=== PATIENT | female | born 1995 | race Caucasian/White ===

== ENCOUNTER 2021-06-07 12:49 | Emergency (ER) | payer SELFPAY ==
[2021-06-07] MEDS ORDERED: Ondansetron 4 MG Tab.DIS PO ONE (13:55)
--- NOTE | 2021-06-07 14:02 | EDM.PDOC ---
ED HPI GENERAL MEDICAL PROBLEM - General Chief Complaint: Gastrointestinal Problem Stated Complaint: VOMITTING AFTER COVID/ Time Seen by Provider: 06/07/21 13:46 Source of Information: Reports: Patient, RN Notes Reviewed History Limitations: Reports: No Limitations - History of Present Illness INITIAL COMMENTS - FREE TEXT/NARRATIVE: 25-year-old female presents emergency department today complaining, she is a 2 P01 currently at 13 weeks gestation, she has had difficulty sleeping food or liquids down over the last 24 hours has used herbal medications at home - Related Data Allergies Allergy/AdvReac Type Severity Reaction Status Date / Time Sulfa (Sulfonamide Allergy Hives Verified 06/07/21 13:45 Antibiotics) Home Meds: Home Meds Pnv No.95/Ferrous Fum/Folic AC [ Caplet] 1 each PO DAILY 06/07/21 [History] Past Medical History [facility] History: Reports: Social & Family History - Tobacco Use Tobacco Use Status *Q: Never Tobacco User - Caffeine Use Caffeine Use: Reports: Coffee ED ROS GENERAL - Review of Systems Review Of Systems: See Below Constitutional: Reports: No Symptoms HEENT: Reports: No Symptoms Respiratory: Reports: No Symptoms Cardiovascular: Reports: No Symptoms GI/Abdominal: Reports: Nausea, Vomiting ED EXAM, GI/ABD - Physical Exam Exam: See Below Exam Limited By: No Limitations General Appearance: Alert, WD/WN, No Apparent Distress Respiratory/Chest: No Respiratory Distress, Lungs Clear, Normal Breath Sounds, No Accessory Muscle Use, Chest Non-Tender Cardiovascular: No Murmur, Tachycardia Course - Vital Signs Last Recorded V/S: Last Vital Signs Temp 97.2 F 06/07/21 13:39 Pulse 114 H 06/07/21 13:39 Resp 16 06/07/21 13:39 BP 100/70 06/07/21 13:39 Pulse Ox 98 06/07/21 13:39 - Orders/Labs/Meds Meds: Medications Discontinued Medications Generic Name Dose Route Start Last Admin Trade Name Laura PRN Reason Stop Dose Admin Ondansetron HCl 4 mg 06/07/21 13:55 06/07/21 14:26 Ondansetron 4 Mg Tab.Dis PO 06/07/21 13:56 4 mg ONETIME ONE Administration Departure - Departure Time of Disposition: 15:49 Disposition: Home, Self-Care 01 Condition: Fair Clinical Impression: Nausea and vomiting during prior to 22 weeks gestation - Discharge Information Instructions: Dehydration, Adult, [id number] Referrals: PCP,None [Primary Care Provider] - Forms: ED Department Discharge Additional Instructions: Use Zofran as needed for nausea vomiting symptoms, continue to push fluids, keep your follow-up appointments with [facility] Sepsis Event Note (ED) - Evaluation Sepsis Screening Result: No Definite Risk - Focused Exam Vital Signs: Vital Signs Temp Pulse Resp BP Pulse Ox 06/07/21 13:39 97.2 F 114 H 16 100/70 98 - Assessment/Plan Plan: Assessment Acuity = acute Site and laterality = nausea and vomiting 13 weeks intrauterine Etiology = unknown Manifestations = none Location of injury = Home Lab values = none Plan Tolerated fluids discharged home with Zofran 4 mg ODT 1 tab p.o. 3 times daily as needed total number keep follow-up appointments This note was dictated using [employer] voice recognition software please call with any questions on syntax or grammar.
== END 2021-06-07 15:50 | disposition home or self-care (01) ==
LOC: JP.ED 12:49
DX: O21.9 Vomiting of pregnancy, unspecified (principal); Z88.2 Allergy status to sulfonamides; Z3A.13 13 weeks gestation of pregnancy
CPT/HCPCS: 99283; A9270